=== PATIENT | male | born 1980 | race African-American/Black ===

== ENCOUNTER 2019-02-07 07:27 | Emergency (ER) | payer OTHER ==
[2019-02-07 07:54] VITALS: BP 118/86; PULSE 80; TEMP 97.8; BMI 26.4
--- NOTE | 2019-02-07 07:56 | PDOC ---
History of Present Illness - General Chief Complaint: Pain, Acute Stated Complaint: ABDOMINAL PAIN Time Seen by Provider: 02/07/19 07:55 History Source: Patient Exam Limitations: No Limitations - History of Present Illness Initial Comments: Pt is a 38 yo M, with no significant PMH, who is presenting with complaints of hard stool and inability to have a bowel movement since yesterday. Pt states he has had issues with constipation in the past, but takes no OTC medications and did not see his doctor "because he doesn't like seeing doctors". He has also had intermittent episodes of loose stool, and passing clear mucus when he tries to have a BM. Pt was able to have a BM yesterday, but "they were like pellets". Pt has been tolerated PO food and fluid intake. Pt has never seen a GI specialist. Pt denies any fevers/chills, headache, vision changes, syncope, chest pain, palpitations, SOB, nausea/vomiting, urinary symptoms, or leg swelling. Social: Pt denies any cigarette, alcohol, or drug use. Pt denies any recent travel or sick contacts. Surgical: no relevant history. Family: Mother - DM. 02/07/19 09:44 Past History - Travel Traveled outside of the country in the last 30 days: No Close contact w/someone who was outside of country & ill: No - Past Medical History Allergies/Adverse Reactions: Allergies Allergy/AdvReac Type Severity Reaction Status Date / Time No Known Allergies Allergy Verified 02/07/19 07:49 Home Medications: Ambulatory Orders NK [No Known Home Medication] 02/07/19 COPD: No - Suicide/Smoking/Psychosocial Hx Smoking History: Never smoked Have you smoked in the past 12 months: No Information on smoking cessation initiated: No Hx Alcohol Use: No Drug/Substance Use Hx: No Review of Systems - Review of Systems Able to Perform ROS?: Yes Is the patient limited Andorran proficient: No Constitutional: Yes: Weight Stable. No: Chills, Diaphoresis, Fever, Loss of Appetite, Malaise, Weakness HEENTM: No: Recent change in vision, Nose Pain, Nose Congestion, Throat Pain, Throat Swelling, Difficulty Swallowing Respiratory: No: Cough, Shortness of Breath Cardiac (ROS): No: Chest Pain, Irregular Heart Rate, Palpitations, Chest Tightness ABD/GI: Yes: Constipated, Abdominal cramping. No: Abdominal Distended, Blood Streaked Bowels, Diarrhea, Nausea, Poor Appetite, Poor Fluid Intake, Rectal Bleeding, Vomiting : No: Burning, Dysuria, Frequency, Pain, Urgency Musculoskeletal: No: Back Pain, Joint Pain, Muscle Pain Integumentary: No: Rash Neurological: No: Headache, Weakness, Unsteady Gait, Dizziness Psychiatric: No: Sleep Pattern Change, Change in Appetite Endocrine: No: Increased Urine, Change in Weight Hematologic/Lymphatic: No: Anemia, Blood Clots, Easy Bleeding, Easy Bruising All Other Systems: Reviewed and Negative *Physical Exam - Vital Signs Last Vital Signs Temp Pulse Resp BP Pulse Ox 97.8 F 80 18 118/86 98 02/07/19 07:50 02/07/19 07:50 02/07/19 07:50 02/07/19 07:50 02/07/19 07:50 - Physical Exam Comments: Vitals stable, pt afebrile. Pt in NAD, normal body habitus. PE showed pt alert and oriented. director of analytical development generally intact, muscular strength and sensation intact. Eyes PERRLA, EOMI. Oropharynx without erythema or exudates, no LAD b/l. No nasal congestion, hearing intact. Clear heart sounds, S1/S2, no JVD, b/l pedal edema, or heart murmur. Clear lung sounds, no respiratory distress, wheezes, crackles, or accessory muscle use. No abdominal or CVA tenderness to palpation, no rebound, no guarding. No palpable stool burden. Abdomen soft, non-distended, and with normoactive bowel sounds. Skin without jaundice or rash. Benign PE. 02/07/19 11:33 Moderate Sedation - Procedure Monitoring Vital Signs: Procedure Monitoring Vital Signs Temperature 97.8 F 02/07/19 07:50 Pulse Rate 80 02/07/19 07:50 Respiratory Rate 18 02/07/19 07:50 Blood Pressure 118/86 02/07/19 07:50 O2 Sat by Pulse Oximetry (%) 98 02/07/19 07:50 ED Treatment Course - LABORATORY CBC & Chemistry Diagram: 02/07/19 08:30 02/07/19 10:24 Medical Decision Making - Medical Decision Making Pt was seen at bedside, also will be seen by attending Dr. Ferreira. Pt presenting with complaints of hard stool and inability to have a bowel movement since yesterday. Pt states he has had issues with constipation in the past, but takes no OTC medications and did not see his doctor "because he doesn't like seeing doctors". He has also had intermittent episodes of loose stool, and passing clear mucus when he tries to have a BM. Pt was able to have a BM yesterday, but "they were like pellets". Pt has been tolerated PO food and fluid intake. Pt has never seen a GI specialist. Pt denies any fevers/chills, headache, vision changes, syncope, chest pain, palpitations, SOB, nausea/ vomiting, urinary symptoms, or leg swelling. Vitals stable, pt afebrile. Pt in NAD, normal body habitus. PE showed pt alert and oriented. director of analytical development generally intact, muscular strength and sensation intact. Eyes PERRLA, EOMI. Oropharynx without erythema or exudates, no LAD b/l. No nasal congestion, hearing intact. Clear heart sounds, S1/S2, no JVD, b/l pedal edema, or heart murmur. Clear lung sounds, no respiratory distress, wheezes, crackles, or accessory muscle use. No abdominal or CVA tenderness to palpation, no rebound, no guarding. No palpable stool burden. Abdomen soft, non-distended, and with normoactive bowel sounds. Skin without jaundice or rash. Benign PE. Likely IBS considering periods of intermittent diarrhea and constipation with mucous. Pt tolerating PO and passing gas, unlikely obstruction. No risk factors for mesenteric ischemia. Pt afebrile and abdomen is soft and nontender. Will get x-ray to r/o fluid levels and basic labs to look at electrolyte imbalances. CBC, CMP, UA, lipase, urine culture, flat/upright abdominal x-ray. Provided mag citrate PO for improvement of constipation. 02/07/19 09:43 CBC WNL CMP: Na 159, Cl 123, BUN 20 -- will repeat to ensure not a lab error; pt denies eating salt tablets or gatorade/electrolyte drinks Pt being taken for x-ray 02/07/19 09:44 Repeat CMP showed Na 141, Cl 107, likely lab error. x-ray showed stool-filled colon, no obstruction. Considering normal lab results and imaging, pt can be discharged to home with follow-up. Pt advised to follow-up with PCP in 1-2 days and has been referred to GI. Strict return precautions provided with pt understanding. 02/07/19 11:33 *DC/Admit/Observation/Transfer Diagnosis at time of Disposition: Constipation Qualifiers: Constipation type: unspecified constipation type Qualified Code(s): K59.00 - Constipation, unspecified - Discharge Dispostion Disposition: HOME Condition at time of disposition: Good Decision to Admit order: No - Referrals Referrals: [facility] – [place], [place] [facility] [place] [Provider Group] Clement Lyn MD [Staff Physician] - - Patient Instructions Printed Discharge Instructions: DI for Constipation, DI for Irritable Bowel Syndrome Additional Instructions: You were seen in the ER today for constipation and were provided with magnesium citrate to help with your bowel movements. Please follow-up with your primary care doctor and GI (Dr. Lyn) within 1-2 days to discuss your visit and make sure your symptoms have improved. You can continue to use over the counter laxatives or senna tea as needed for constipation. Please drink plenty of fluids as well. Please return to the ER if you have any worsening pain, development of fevers or chills, loss of consciousness, inability to tolerate food or fluids, or any other concerns. - Post Discharge Activity Forms/Work/School Notes: Back to Work
[2019-02-07] MEDS ORDERED: MAGNESIUM CITRATE 300 ML BOTTLE PO ONE (08:09)
[2019-02-07] MEDS ORDERED: MAGNESIUM CITRATE 300 ML BOTTLE ONE (08:24)
[2019-02-07 08:56] LABS: EOS % 4.3 % (0-4.5); HEMATOCRIT 41.3 % (35.4-49); HEMOGLOBIN 14.7 GM/dL (11.7-16.9); LYMPH % 23.4 % (8-40); MCH 31.1 pg (25.7-33.7); MCHC 35.5 g/dl (32.0-35.9); MEAN CELL VOLUME 87.5 fl (80-96); MEAN PLT VOLUME 9.8 fl (7.5-11.1); MONO % 12.3 % (3.8-10.2); PLATELET COUNT 206 K/MM3 (134-434); RBC 4.72 M/mm3 (4.00-5.60); RDW 12.7 % (11.9-15.9); WHITE BLOOD COUNT 6.7 K/mm3 (4.0-10.0)
[2019-02-07 09:17] LABS: ALBUMIN 3.9 g/dl (3.4-5.0); ALK PHOS 145 U/L (45-117); ANION GAP 10 MMOL/L (8-16); BILIRUBIN,TOTAL 0.8 mg/dL (0.2-1); BLOOD UREA NITROGEN 20 mg/dL (7-18); CHLORIDE 123 mmol/L (98-107); CO2 26 mmol/L (21-32); GLUCOSE,RANDOM 91 mg/dL (74-106); POTASSIUM 4.5 mmol/L (3.5-5.1); SGOT/AST 22 U/L (15-37); SGPT/ALT 25 U/L (13-61); SODIUM 159 mmol/L (136-145); TOT PROT 7.2 g/dl (6.4-8.2)
[2019-02-07 09:22] LABS: LIPASE 190 U/L (73-393)
--- NOTE | 2019-02-07 09:57 | PDOC ---
Attending Attestation - Resident Resident Name: Estela Munoz - ED Attending Attestation I have performed the following: I have examined & evaluated the patient, The case was reviewed & discussed with the resident, I agree w/resident's findings & plan, Exceptions are as noted - HPI HPI: 02/07/19 09:58 38yo M with no sig PMH presents to the ED with 1 day of LUQ pain and constipation. 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 He states pain occurs mostly when he sits from a lying position. Reports working out yesterday and may have strained a muscle. He reports similar pain occurred 1 year ago, and self resolved. Pt reports he only has a BM every other day for the last few months. Yesterday, pt had small BM that was mostly "pellets." Has not tried any treatments. Denies fevers, chills, CP, SOB, N/V/D, urinary freq, dysuria, urgency, hematuria. Denies rashes, focal weakness/ numbness. - Physicial Exam PE: 02/07/19 10:05 GENERAL: Awake, alert, and fully oriented, in no acute distress HEAD: No signs of trauma EYES: PERRLA, EOMI, sclera anicteric, conjunctiva clear ENT: Oropharynx clear without exudates. Moist mucosa LUNGS: Breath sounds equal, clear to auscultation bilaterally. No wheezes, and no crackles HEART: Regular rate and rhythm, normal S1 and S2, no murmurs, rubs or gallops ABDOMEN: Soft, nontender, normoactive bowel sounds. No distention. No guarding , no rebound. No masses EXTREMITIES: Normal range of motion, no edema. No cords, erythema, or tenderness NEUROLOGICAL: Normal speech, cranial nerves intact, equal strength and sensation b/l, normal gait SKIN: Warm, Dry, normal turgor, no rashes or lesions noted. - Medical Decision Making 02/07/19 10:07 38yo M presents to the ED with LUQ pain and constipation. Vitals and exam wnl. Labs remarkable for hypernatremia to 159 and chloride of 123. Pt is not taking and sodium chloride supplements. States he has been consuming salty foods but nothing to excessive. Pt is not clinically volume depleted. Suspect spurious lab value. Will repeat labs and reassess. 02/07/19 11:30 Rpt sodium wnl which is much more consistent with clinical picture Pt well appearing No abd ttp Labs otherwise wnl Pt to f/u with his PMD Return precautions given I discussed the physical exam findings, ancillary test results and final diagnoses with the patient. I answered all of the patient's questions. The patient was satisfied with the care received and felt comfortable with the discharge plan and treatment plan. The patient will call their primary care physician within 24 hours to arrange follow-up and will return to the Emergency Department with any new, persistent or worsening symptoms.
[2019-02-07 11:19] LABS: ALBUMIN 4.1 g/dl (3.4-5.0); ALK PHOS 143 U/L (45-117); ANION GAP 5 MMOL/L (8-16); BILIRUBIN,TOTAL 0.9 mg/dL (0.2-1); BLOOD UREA NITROGEN 19 mg/dL (7-18); CALCIUM 9.1 mg/dL (8.5-10.1); CHLORIDE 107 mmol/L (98-107); CO2 28 mmol/L (21-32); CREATININE 1.1 mg/dL (0.55-1.3); GLUCOSE,RANDOM 89 mg/dL (74-106); POTASSIUM 4.1 mmol/L (3.5-5.1); SGOT/AST 23 U/L (15-37); SGPT/ALT 28 U/L (13-61); SODIUM 141 mmol/L (136-145); TOT PROT 7.7 g/dl (6.4-8.2)
[2019-02-07 11:30] LABS: URINE APPEARANCE CLEAR; URINE BILIRUBIN NEGATIVE (<2.0 mg/dL); URINE COLOR YELLOW; URINE GLUCOSE (UA) NEGATIVE (NEGATIVE); URINE KETONE NEGATIVE (NEGATIVE); URINE LEUK ESTERASE NEGATIVE (NEGATIVE); URINE NITRITE NEGATIVE (NEGATIVE); URINE PROTEIN NEGATIVE (NEGATIVE)
== END 2019-02-07 11:38 | disposition home or self-care (01) ==
LOC: JER 07:27
DX: K59.00 Constipation, unspecified (principal)
CPT/HCPCS: 36415; 74019-TC-FY; 80053; 81003; 83690; 85025; 87086; 99282-25